=== PATIENT | female | born 1985 | race Caucasian/White ===

== ENCOUNTER → 2020-11-24 | Outpatient (CLI) | payer BC ==
[2020-11-24 10:42] LABS: HEMOGLOBIN 12.3 gm/dl (12.3-15.3); RED BLOOD COUNT 4.36 M/UL (4.00-5.10); WHITE BLOOD COUNT 7.8 K/UL (4.5-11.0)
[2020-11-24 11:18] LABS: BUN/CREATININE RATIO 8 (0-10)
[2020-11-25 12:14] LABS: COMPLEMENT C3, SERUM 183 mg/dL (82-167); COMPLEMENT C4, SERUM 23 mg/dL (12-38); RHEUMATOID ARTHRITIS FACTOR <10.0 IU/mL (0.0-13.9)
== END ==
LOC: LAB 09:21
PROVIDERS: Nurse Practitioner Family
DX: M25.50 Pain in unspecified joint (principal); M32.9 Systemic lupus erythematosus, unspecified; R76.8 Other specified abnormal immunological findings in serum; D89.9 Disorder involving the immune mechanism, unspecified; M79.10 Myalgia, unspecified site
CPT/HCPCS: 36415; 80053; 81001; 82550; 82570; 83520; 84156; 85025; 85652; 86140; 86160; 86162; 86200; 86431

== ENCOUNTER → 2020-12-29 | Outpatient (CLI) | payer BC ==
[2020-12-31 07:10] LABS: HBSAG SCREEN Negative (Negative); HEP B CORE AB, TOT Negative (Negative)
[2020-12-31 12:14] LABS: HCV AB 0.1 (0.0-0.9)
== END ==
LOC: LAB 16:35
PROVIDERS: Nurse Practitioner Family
DX: Z11.59 Encounter for screening for other viral diseases (principal); Z79.899 Other long term (current) drug therapy
CPT/HCPCS: 36415; 86704; 86803; 87340